=== PATIENT | female | born 1995 | race Caucasian/White ===

== ENCOUNTER 2023-12-26 06:16 | Day surgery (SDC) | payer SELFPAY ==
[2023-12-26] VITALS (8 sets, daily range): BP systolic 104–137; BP diastolic 65–81; BMI 23.6
== END 2023-12-26 15:00 | disposition home or self-care (01) ==
LOC: COSMETIC 06:16
PROVIDERS: ATTENDING PHYSICIAN Otolaryngology Facial Plastic Surgery
DX: Z41.1 Encounter for cosmetic surgery (principal); M95.0 Acquired deformity of nose
CPT/HCPCS: 30420